=== PATIENT | female | born 1985 | race Caucasian/White ===

== ENCOUNTER 2017-05-15 13:49 | Emergency (ER) | payer MEDICAID ==
[~2017-05-15] VITALS: Ht 176.5 cm; Wt 68.0 kg
[~2017-05-15 13:49] MED LIST: IBUP-1222 PO; OXYC-302 PO
[2017-05-15 13:58] VITALS: BP 141/93
== END 2017-05-15 14:38 | disposition home or self-care (01) ==
LOC: ED 14:10
DX: K08.89 Other specified disorders of teeth and supporting structures (principal); F17.200 Nicotine dependence, unspecified, uncomplicated
CPT/HCPCS: 99283

== ENCOUNTER 2017-08-06 14:39 | Emergency (ER) | payer MEDICAID ==
[~2017-08-06] VITALS: Ht 175.3 cm; Wt 63.5 kg
[2017-08-06 14:41] VITALS: BP 118/76
== END 2017-08-06 18:19 | disposition left against medical advice (07) ==
LOC: ED 15:00
DX: B08.4 Enteroviral vesicular stomatitis with exanthem (principal)
CPT/HCPCS: 99281

== ENCOUNTER 2017-09-20 11:57 | Emergency (ER) | payer MEDICAID ==
[~2017-09-20] VITALS: Ht 176.5 cm; Wt 66.1 kg
[2017-09-20 12:29] VITALS: BP 135/84
== END 2017-09-20 12:31 | disposition home or self-care (01) ==
LOC: ED 12:29
DX: K02.9 Dental caries, unspecified (principal); K03.81 Cracked tooth; Z87.891 Personal history of nicotine dependence
CPT/HCPCS: 99283